=== PATIENT | male | born 1935 | race Caucasian/White ===

== ENCOUNTER 2021-04-03 13:46 | Observation (INO) | payer MEDICARE, BC ==
[~2021-04-03] VITALS: Ht 160 cm; Wt 66.1 kg
[~2021-04-03 13:46] MED LIST: ALLO300T PO; BISO1TAB82 PO; FOLI0.8C PO; METH2.5T PO
--- NOTE | 2021-04-03 14:12 | PHYS DOC ---
Past History Past Medical History: Hypertension Additional Past Medical Histor: psorisis, gout, colon cancer Past Surgical History: Other Additional Past Surgical Histo: hernia repair, Alcohol Use: Heavy Additional Alcohol Information: 2 beers/daily General Adult EDM: Chief Complaint: MECHANICAL FALL HPI: HPI: Patient is a 85-year-old male brought in by EMS for back pain after a fall 2 days ago. Patient states he was out in his yard when he slipped on some wet leaves and fell forward. Patient try to catch himself but struck his face on the ground. States he has some pain and bruising around his right eye but he does not have any pain there now. He has had a difficult time caring for himself and getting out of bed due to the back pain. States he has not been able to use the restroom and has been incontinent of urine. Denies any lower extremity weakness. Has a friend there for suicidal stock manager, that comes by daily to check on him but is unable to stay with him. She is able to feed and at that time. Review of Systems: Review of Systems: All other systems within normal limits except for as noted in the HPI Physical Exam: PE: Constitutional: Well developed, well nourished, no acute distress, non-toxic appearance. [] HENT: Normocephalic, atraumatic, bilateral external ears normal, nose normal. [] Eyes: PERRLA, conjunctiva normal, no discharge. [] Neck: No rigidity, supple, no stridor. [] Cardiovascular: Regular rate and rhythm, brisk cap refill [] Lungs & Thorax: Non labored symmetric respirations, no tachypnea or respiratory distress [] Abdomen: Soft, nondistended. Skin: Warm, dry, no erythema, no rash. [] Back: Unremarkable, no step-off or deformity, tenderness over trapezius and thoracic spine, no lumbar or cervical tenderness. Extremities: No deformities, range of motion grossly intact, no lower extremity edema [] Neurologic: Alert and oriented X 3, no focal deficits noted. [] Psychologic: Affect normal, judgement normal, mood normal. [] EKG: EKG: [] Radiology/Procedures: Radiology/Procedures: CT THORACIC SPINE WO 04/03/2021 2:43 PM Indication: fall, pain Comparison: None. Technique: CT imaging of the thoracic spine was performed without contrast. Coronal and sagittal reformatted images were performed. One or more of the following dose reduction techniques were utilized: Automated exposure control (AEC), Adjustment of mA and/or kV according to patient size, Use of iterative reconstruction technique such as ASiR, CT scan done according to ALARA and image gently/image wisely. Findings: The thoracic spine is normally aligned. No acute fracture. Vertebral body heights are maintained without compression deformity. Multilevel degenerative disc height loss. Osseous demineralization. Multilevel bridging osteophytes. No significant spinal canal stenosis or neural foraminal narrowing. The visualized lungs are clear. No pleural effusion. Atherosclerosis of the thoracic aorta. Mitral annular calcification. Impression: No acute osseous abnormality of the thoracic spine. [] Heart Score: C/O Chest Pain: No Risk Factors: Risk Factors: DM, Current or recent (<one month) smoker, HTN, HLP, family history of CAD, obesity. Risk Scores: Score 0 - 3: 2.5% MACE over next 6 weeks - Discharge Home Score 4 - 6: 20.3% MACE over next 6 weeks - Admit for Clinical Observation Score 7 - 10: 72.7% MACE over next 6 weeks - Early Invasive Strategies Course & Med Decision Making: Course & Med Decision Making Pertinent Labs and Imaging studies reviewed. (See chart for details) No fracture but patient has pain severe enough to limit his activities and is not able to care for himself at home. Patient is a fall risk with pain medications. Discussed with hospitalist will accept patient for physical therapy and pain management. [] Dragon Disclaimer: Dragon Disclaimer: This electronic medical record was generated, in whole or in part, using a voice recognition dictation system. Departure Departure: Impression: Primary Impression: Fall Additional Impression: Thoracic back pain Disposition: ADMITTED INPATIENT Admitting Physician: Louie Brito Condition: STABLE WILLIAM PRASAD MD April 03, 2021 14:12
--- NOTE | 2021-04-03 15:29 | RAD ---
CT THORACIC SPINE WO 04/03/2021 2:43 PM Indication: fall, pain Comparison: None. Technique: CT imaging of the thoracic spine was performed without contrast. Coronal and sagittal ref ormatted images were performed. One or more of the following dose reduction techniques were utilized: Automated exposure control (AEC), Adjustment of mA and/or kV according to patient size, Use of itera tive reconstruction technique such as ASiR, CT scan done according to ALARA and image gently/image wi sely. Findings: The thoracic spine is normally aligned. No acute fracture. Vertebral body heights are maintained with out compression deformity. Multilevel degenerative disc height loss. Osseous demineralization. Multil evel bridging osteophytes. No significant spinal canal stenosis or neural foraminal narrowing. The visualized lungs are clear. No pleural effusion. Atherosclerosis of the thoracic aorta. Mitral an nular calcification. Impression: No acute osseous abnormality of the thoracic spine. Electronically signed by: Adi Reed MD (04/03/2021 3:26 PM) [id number]
[2021-04-03 15:59] LABS: BASO % 0 % (0-3); EOS # 0.1 x10^3/uL (0.0-0.7); EOS % 1 % (0-3); HEMATOCRIT 44.8 % (39.0-53.0); LYMPH % 11 % (24-48); MEAN CORPUSCULAR HEMOGLOBIN 33 pg (25-35); MEAN CORPUSCULAR HGB CONC 34 g/dL (31-37); MEAN CORPUSCULAR VOLUME 99 fL (79-100); MONO # 0.7 x10^3/uL (0.0-1.1); MONO % 8 % (0-9); NEUT # 7.1 x10^3uL (1.8-7.7); NEUT % 80 % (31-73); PLATELET COUNT 218 x10^3/uL (140-400); RED CELL DISTRIBUTION WIDTH 13.4 % (11.5-14.5); WHITE BLOOD COUNT 8.9 x10^3/uL (4.0-11.0)
[2021-04-03] MEDS ORDERED: MORPHINE SULFATE 2 MG/ML DISP.SYRIN. IVP PRN (16:00)
[2021-04-03] MEDS ORDERED: MORPHINE SULFATE 4 MG/ML DISP.SYRIN. IVP PRN (16:00)
[2021-04-03] MEDS ORDERED: ACETAMINOPHEN 325 MG TABLET PO PRN (16:00)
[2021-04-03] MEDS ORDERED: ONDANSETRON PF 4 MG/2 ML VIAL. IVP PRN (16:00)
[2021-04-03 16:15] LABS: CALCIUM 8.8 mg/dL (8.5-10.1); GFR 71.2; POTASSIUM 3.9 mmol/L (3.5-5.1)
[2021-04-03 16:28] LABS: ALBUMIN 3.1 g/dL (3.4-5.0); ALBUMIN/GLOBULIN RATIO 0.9 (1.0-1.7); MAGNESIUM 2.2 mg/dL (1.8-2.4); PHOSPHORUS 3.6 mg/dL (2.6-4.7); TOTAL BILIRUBIN 1.4 mg/dL (0.2-1.0); TOTAL PROTEIN 6.7 g/dL (6.4-8.2)
[2021-04-03 16:35] LABS: BILIRUBIN,URINE NEG (NEG); CLARITY,URINE CLEAR; COLOR,URINE YELLOW; GLUCOSE,URINE NEG (NEG)
[2021-04-03 16:36] LABS: BACTERIA,URINE 0 /HPF (0-FEW); NITRITE,URINE NEG (NEG); RBC,URINE 0 /HPF (0-2); SQUAMOUS EPITHELIAL CELL,UR OCC /LPF; WBC,URINE 0 /HPF (0-4)
[2021-04-03] MEDS: IV NORMAL SALINE 1,000ML 1,000 ML IV SCH (17:19)
--- NOTE | 2021-04-03 18:34 | NUR ---
Admission note Pt admitted to unit to room 124 at 1652 via EMS from the ER. Pt is unable to give medication list and when asked if there was anyone who could bring one in pt replied no there is no one.
[2021-04-03 19:23] VITALS: BP 163/84
--- NOTE | 2021-04-03 19:23 | NUR ---
pt cant not come up with a med list. called the pharmacy but it is closed due to holiday. Also the house keeper is not answering her phone to assists with med list. Will try to call pharmacy in the morning.
[2021-04-03 22:34] VITALS: BP 160/81
[2021-04-04] MEDS: IV NORMAL SALINE 1,000ML 1,000 ML IV SCH (05:20)
[2021-04-04 05:25] VITALS: BP 171/73
[2021-04-04 06:17] LABS: CALCIUM 8.2 mg/dL (8.5-10.1); CREATININE 0.9 mg/dL (0.7-1.3); GFR 80.4; POTASSIUM 4.2 mmol/L (3.5-5.1)
[2021-04-04 06:32] LABS: BASO % 1 % (0-3); EOS % 1 % (0-3); HEMATOCRIT 43.8 % (39.0-53.0); HEMOGLOBIN 14.9 g/dL (13.0-17.5); LYMPH % 11 % (24-48); MEAN CORPUSCULAR HEMOGLOBIN 34 pg (25-35); MEAN CORPUSCULAR HGB CONC 34 g/dL (31-37); MEAN CORPUSCULAR VOLUME 99 fL (79-100); MONO # 0.4 x10^3/uL (0.0-1.1); MONO % 5 % (0-9); NEUT # 7.5 x10^3uL (1.8-7.7); NEUT % 83 % (31-73); PLATELET COUNT 220 x10^3/uL (140-400); RED BLOOD COUNT 4.44 x10^6/uL (4.30-5.70); RED CELL DISTRIBUTION WIDTH 13.4 % (11.5-14.5)
--- NOTE | 2021-04-04 09:01 | DS ---
DATE OF DISCHARGE: 04/04/2021 ATTENDING PHYSICIAN: Dr. Brito. FINAL DISCHARGE DIAGNOSES: 1. Weakness and fall at home. 2. Chronic alcoholism. 3. Psoriasis. 4. Psoriatic arthritis. 5. Essential hypertension. 6. Degenerative joint disease. 7. Chronic low back pain. HISTORY AND PHYSICAL: The patient is an 85-year-old gentleman who lives alone. He never . 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 He fell at home. He was very weak. He was admitted to the hospital overnight for observation and potential long-term care plan. PHYSICAL EXAMINATION: Please see my dictated note. PERTINENT LABORATORY AND X-RAY STUDIES: CBC, chemistry panel unremarkable. Sugars were adequate. X-ray showed no acute fracture or dislocation. No thoracic spine. COURSE IN THE HOSPITAL: The patient was sober when I saw him. I asked him if he needed a higher level of care, he declined. He wants to go home to continue living at home with his carpenter foreman. There were no changes on his home meds. I did take the liberty writing him a prescription for standard wheelchair. Therefore on the 2nd hospital day, the patient's vital signs were quite stable. Blood pressure was 160/70. He was afebrile, pulse is regular. He is in no acute distress. He is therefore discharged home with continuation of his blood pressure meds combination, bisoprolol, hydrochlorothiazide, folic acid, methotrexate weekly and allopurinol. He will follow up with Dr. Mitchell as scheduled. I wrote him a script for standard wheelchair. He was discharged in stable condition with explicit drug and followup care. SHON DR: Naz TID: [id number] CC: CLAUDIA MITCHELL MD
--- NOTE | 2021-04-04 09:12 | HP ---
ADMIT DATE: 04/04/2021 ATTENDING PHYSICIAN: Dr. Brito. CHIEF COMPLAINT: Fall and weakness. HISTORY OF PRESENT ILLNESS: The patient is an 85-year-old gentleman who is single. He never . He lives alone. He has a fish housekeeper that has been with him for 24 years that comes in and gets his groceries and looks after. She is not there 24 hours. He fell again two days ago in the yard. He sustained an injury to the right orbit. He has no bruits. He has some chronic back pain. X-rays in the ED showed no acute fractures or dislocation. He has some degenerative arthritis changes without any vertebral fractures. Blood work was fairly unremarkable. There was no evidence of acute infection, stroke, COVID exposure or coronary ischemia. He was admitted then for observation because he cannot care for himself. He lives alone. The reality is that he has reached the point in his life where he cannot take care of himself and he needs a higher level of care, but he refused at this time. In any event, we will get physical therapy. We will keep him overnight and decide when he wants to do. PAST MEDICAL HISTORY: Significant for essential hypertension, psoriasis, gout and remote history of colon cancer. PAST SURGICAL HISTORY: Hernia repair. SOCIAL HISTORY: Alcohol use significant, he states 2 beers daily, but he drinks more than that. He denies any remote history of alcohol withdrawal syndrome. FAMILY HISTORY: Noncontributory. REVIEW OF SYSTEMS: Significant for profound weakness. He has some neuropathy, chronic low back pain. He was very sharp mentally when I saw him. All other systems reviewed and turned to be negative. ALLERGIES: HE HAS ALLERGIES TO PENICILLIN. CURRENT MEDICATIONS: Include allopurinol, bisoprolol, folic acid and methotrexate weekly. PHYSICAL EXAMINATION: GENERAL: When I saw him, this is a chronically ill-appearing gentleman. INITIAL VITAL SIGNS: Showed a blood pressure 161/71 mmHg, pulse is 78 and regular. He was afebrile, oxygen saturation 97% on room air. HEENT: Head is without trauma. Pupils are reactive sclerae. NEUROLOGIC: Nonicteric. There is an old bruits and swelling over the right periorbital area. 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 NECK: Supple. No bruits or stridor. LUNGS: Otherwise clear. CARDIOVASCULAR: Regular heart tones. No gallops. ABDOMEN: Soft. EXTREMITIES: Without edema. He has a boutonniere deformities of his index finger of the right hand. He also has some hypertrophic osteoarthropathy (clubbing). He is still weak and requires 1:1 assistance for transfer. PERTINENT LABORATORY AND IMAGING STUDIES: Thoracic spine films show no acute fracture or dislocation. Degenerative changes were identified. Hemoglobin is 15.0 g/dL, MCV is 99, white count 8900. Electrolytes all within normal range with a sodium 140, potassium 4.2 mEq, creatinine of 0.9 mg%. Nonfasting blood sugar is 101. Cardiac enzymes negative for coronary ischemia. BNP was 1700. Bilirubin of 1.4. Transaminases were normal. ASSESSMENT: 1. This 85-year-old gentleman fell and was quite weak and cannot get up. 2. Chronic alcoholism. 3. Alcoholic neuropathy. 4. History of psoriasis. 5. Degenerative joint disease. 6. Chronic low back pain. PLAN: 1. Observation status. 2. Home medications continue. 3. We will have case management discussed with him in the morning as to his disposition. HARRISON/CLARKE DR: Naz TID: [id number] CC: CLAUDIA MITCHELL MD
== END 2021-04-04 10:30 | disposition home health service (06) ==
LOC: ER 13:46 → INTOOBSV 16:00 → 1 SOUTH 16:00
PROVIDERS: ADMIT Hospitalist; ATTEND Hospitalist
DX: S00.11XA Contusion of right eyelid and periocular area, initial encounter (principal); R53.1 Weakness; F10.20 Alcohol dependence, uncomplicated; I10 Essential (primary) hypertension; G90.9 Disorder of the autonomic nervous system, unspecified; L40.9 Psoriasis, unspecified; M54.6 Pain in thoracic spine; M19.90 Unspecified osteoarthritis, unspecified site; M54.5 Low back pain; G89.29 Other chronic pain; L40.50 Arthropathic psoriasis, unspecified; M10.9 Gout, unspecified; E78.5 Hyperlipidemia, unspecified; R32 Unspecified urinary incontinence; E11.9 Type 2 diabetes mellitus without complications; G62.1 Alcoholic polyneuropathy; Z85.038 Personal history of other malignant neoplasm of large intestine; Z87.891 Personal history of nicotine dependence; Z79.899 Other long term (current) drug therapy; Z98.890 Other specified postprocedural states; Z91.81 History of falling; W01.0XXA Fall on same level from slipping, tripping and stumbling without subsequent striking against object, initial encounter; Y93.89 Activity, other specified; Y92.009 Unspecified place in unspecified non-institutional (private) residence as the place of occurrence of the external cause; Y90.9 Presence of alcohol in blood, level not specified; Y99.8 Other external cause status
CPT/HCPCS: 36415; 72128; 80048; 80053; 81001; 82550; 83735; 83880; 84100; 84484; 85025; 96360; 96361; 99284; G0378; J7030; G0379; 99285-25

== ENCOUNTER 2021-04-25 14:02 | Emergency (ER) | payer MEDICARE, BC ==
[~2021-04-25] VITALS: Ht 160 cm; Wt 62.3 kg
[2021-04-25] MEDS ORDERED: IV NORMAL SALINE 1,000ML 1,000 ML IV ONE ×2 (14:15→14:45)
[2021-04-25 14:40] LABS: BASO # 0.1 x10^3/uL (0.0-0.2); BASO % 1 % (0-3); EOS # 0.1 x10^3/uL (0.0-0.7); EOS % 1 % (0-3); HEMOGLOBIN 13.3 g/dL (13.0-17.5); LYMPH # 1.1 x10^3/uL (1.0-4.8); LYMPH % 10 % (24-48); MEAN CORPUSCULAR HEMOGLOBIN 33 pg (25-35); MEAN CORPUSCULAR HGB CONC 34 g/dL (31-37); MEAN CORPUSCULAR VOLUME 98 fL (79-100); MONO # 1.5 x10^3/uL (0.0-1.1); MONO % 15 % (0-9); NEUT # 7.5 x10^3uL (1.8-7.7); NEUT % 73 % (31-73); PLATELET COUNT 448 x10^3/uL (140-400); RED BLOOD COUNT 3.98 x10^6/uL (4.30-5.70); RED CELL DISTRIBUTION WIDTH 13.4 % (11.5-14.5); WHITE BLOOD COUNT 10.2 x10^3/uL (4.0-11.0)
[2021-04-25] MEDS ORDERED: AZTREONAM 2 GM in IV NORMAL SALINE 100ML 100 ML IV ONE (14:45)
[2021-04-25] MEDS ORDERED: NOREPINEPHRINE BITARTRATE 8 MG in IV DEXTROSE 5% 250 ML IV PRN (14:45)
[2021-04-25] MEDS ORDERED: VANCOMYCIN PER PHARMACY MC PRN (14:45)
[2021-04-25] MEDS ORDERED: AZTREONAM 1 GM VIAL. IV ONE (14:49)
[2021-04-25 14:51] LABS: BUN ISTAT 46 mg/dL (8-26); GLUCOSE ISTAT 134 mg/dL (60-99); HEMATOCRIT ISTAT 40 %; HEMOGLOBIN ISTAT 13.6 gm/dL; POTASSIUM ISTAT 3.2 mmol/L (3.5-5.0); SODIUM ISTAT 140 mmol/L (135-145)
[2021-04-25] MEDS ORDERED: IV NORMAL SALINE 100ML 100 ML ONE (14:52)
[2021-04-25] MEDS ORDERED: VANCOMYCIN 1.5 GM in IV NORMAL SALINE 500ML 500 ML IV ONE (15:00)
--- NOTE | 2021-04-25 15:54 | RAD ---
XR CHEST 1V History: Reason: weakness / Spl. Instructions: / History: Comparison: None. Findings: Low lung volumes with mild bibasilar linear atelectasis. Normal heart size. No pneumothorax. Prior gr anulomatous disease within the chest. Impression: 1. Low lung volumes with mild bibasilar linear atelectasis. Electronically signed by: Todd Dickens DO (04/25/2021 3:51 PM) [facility]
[2021-04-25 16:15] LABS: CLARITY,URINE CLEAR; COLOR,URINE YELLOW
[2021-04-25 16:16] LABS: BILIRUBIN,URINE SMALL (NEG); GLUCOSE,URINE NEG (NEG); NITRITE,URINE NEG (NEG)
[2021-04-25 16:21] LABS: BACTERIA,URINE FEW /HPF (0-FEW); HYALINE CASTS, URINE MANY /HPF; SQUAMOUS EPITHELIAL CELL,UR FEW /LPF
--- NOTE | 2021-04-25 16:59 | PHYS DOC ---
Past History Past Medical History: Hypertension Additional Past Medical Histor: psorisis, gout, colon cancer Past Medical History Limited secondary to altered mental status Past Surgical History: Other Additional Past Surgical Histo: hernia repair, Past Surgical History Limited secondary to altered mental status Alcohol Use: Heavy Social History Limited secondary to altered mental status General Adult EDM: Chief Complaint: SYNCOPE HPI: HPI: 85-year-old male presents via EMS from acute care rehab after having syncopal episode with subsequent unresponsiveness in wheelchair just prior to arrival. EMS reports initial blood pressure significantly low down to 60s over 30s. IV fluid bolusing provided by EMS. Patient was able to give his name but otherwise was on oriented. Discussed with patients friends, Sheryl and Jaimie Carranza. Patient with last known fall on 04/03/21. At that time, patient was seen in ED at [facility] at that time with CT thoracic spine imaging obtained. Due to pain and weakness, patient was admitted and then transferred to acute care rehab for further management.. Patient with history of altered mental status secondary to urinary tract infection. Per [facility], patient is currently being treated with doxycycline for an UTI. Per [employer] review patient received Moderna COVID vaccinations with 2nd vaccination reportedly given on 03/22/21. Review of Systems: Review of Systems: Review of systems limited secondary to altered mental status. Current Medications: Current Meds: Current Medications Medications (Trade) Dose Ordered Sig/Adi Start Time Stop Time Status Last Admin Dose Admin Aztreonam (Azactam) 1 gm STK-MED ONCE 04/25/21 14:49 04/25/21 14:49 DC Aztreonam 2 gm/ Sodium Chloride 100 ml @ 200 mls/hr 1X ONCE 04/25/21 14:45 04/25/21 15:14 DC 04/25/21 14:45 200 MLS/HR Levofloxacin/ Dextrose 150 ml @ 100 mls/hr 1X ONCE 04/25/21 14:45 04/25/21 16:14 DC Norepinephrine Bitartrate 8 mg/ Dextrose 258 ml @ 12.055 mls/ hr CONT PRN 04/25/21 14:45 04/25/21 15:30 24.11 MLS/HR Sodium Chloride 100 ml @ As Directed STK-MED ONCE 04/25/21 14:52 04/25/21 14:52 DC Vancomycin HCl (Vanco Per Pharmacy) 1 each PRN DAILY PRN 04/25/21 14:45 Vancomycin HCl 1.5 gm/Sodium Chloride 500 ml @ 250 mls/hr 1X ONCE 04/25/21 15:00 04/25/21 16:59 04/25/21 15:35 250 MLS/HR Allergies: Allergies: Allergies Coded Allergies Type Severity Reaction Last Updated Verified Penicillins Allergy Unknown 04/03/21 Yes tetracycline Adverse Reaction Intermediate Nausea and Vomiting 04/04/21 Yes Physical Exam: PE: Constitutional: Elderly, well nourished, toxic appearance HENT: Normocephalic, small healing ecchymosis noted above right eyebrow, mucous membranes dry Eyes: PERRL, EOMI, conjunctiva normal, no discharge Neck: Cervical tenderness on palpation, supple Lungs & Thorax: No respiratory distress, equal chest rise and fall, coarse breath sounds bilaterally Cardiovascular: Regular rate and rhythm Abdomen: Soft, no tenderness, no guarding/rebound tenderness/distention; pelvis stable and nontender Skin: Warm, dry, no erythema, scattered skin tears to left arm, erythema noted to groin consistent with heat rash Extremities: No tenderness, no deformity Neurologic: Alert and oriented X name only, patient is able to move arms and legs with some decreased strength to left hand, normal sensory function, GCS 13 (eyes 4, verbal 4, motor 5) Psychologic: Affect normal, judgment abnormal Current Patient Data: Labs: Laboratory Tests Test 04/25/21 14:14 04/25/21 15:49 White Blood Count 10.2 x10^3/uL (4.0-11.0) Red Blood Count 3.98 x10^6/uL (4.30-5.70) L Hemoglobin 13.3 g/dL (13.0-17.5) POC Hemoglobin 13.6 gm/dL Hematocrit 39.0 % (39.0-53.0) POC Hematocrit 40 % Mean Corpuscular Volume 98 fL (79-100) Mean Corpuscular Hemoglobin 33 pg (25-35) Mean Corpuscular Hemoglobin Concent 34 g/dL (31-37) Red Cell Distribution Width 13.4 % (11.5-14.5) Platelet Count 448 x10^3/uL (140-400) H Neutrophils (%) (Auto) 73 % (31-73) Lymphocytes (%) (Auto) 10 % (24-48) L Monocytes (%) (Auto) 15 % (0-9) H Eosinophils (%) (Auto) 1 % (0-3) Basophils (%) (Auto) 1 % (0-3) Neutrophils # (Auto) 7.5 x10^3uL (1.8-7.7) Lymphocytes # (Auto) 1.1 x10^3/uL (1.0-4.8) Monocytes # (Auto) 1.5 x10^3/uL (0.0-1.1) H Eosinophils # (Auto) 0.1 x10^3/uL (0.0-0.7) Basophils # (Auto) 0.1 x10^3/uL (0.0-0.2) POC Sodium 140 mmol/L (135-145) POC Potassium 3.2 mmol/L (3.5-5.0) L POC Chloride 101 mmol/L (98-110) POC Total CO2 19 mmol/L (23-32) L Anion Gap 19 mmol/L (6-14) H POC Blood Urea Nitrogen 46 mg/dL (8-26) H POC Creatinine 1.4 mg/dL (0.5-1.4) Glucose Level 134 mg/dL (60-99) H POC Ionized Calcium (Moe) 1.4 mmol/L (1.13-1.32) H POC Troponin I < 0.02 ng/ml (<0.08) Urine Collection Type Unknown Urine Color Yellow Urine Clarity Clear Urine pH 6.0 Urine Specific [place] 1.010 Urine Protein Trace (NEG-TRACE) Urine Glucose (UA) Neg mg/dL (NEG) Urine Ketones (Stick) Trace mg/dL (NEG) Urine Blood Large (NEG) Urine Nitrite Neg (NEG) Urine Bilirubin Small (NEG) Urine Urobilinogen Dipstick 1.0 mg/dL (0.2 mg/dL) Urine Leukocyte Esterase Trace (NEG) Urine RBC 11-20 /HPF (0-2) Urine WBC 11-20 /HPF (0-4) Urine Squamous Epithelial Cells Few /LPF Urine Bacteria Few /HPF (0-FEW) Urine Hyaline Casts Many /HPF Urine Mucus Mod /LPF Vital Signs: Vital Signs Date Time Temp Pulse Resp B/P (MAP) Pulse Ox O2 Delivery O2 Flow Rate FiO2 04/25/21 15:01 65 16 81/41 (54) 95 Room Air 04/25/21 14:06 97.2 EKG: EKG: @1405 NSR at 66bpm, NO ST elevation, QRS 84ms, QT/QTc 418/440ms Radiology/Procedures: Radiology/Procedures: PROCEDURE: PORTABLE CHEST 1V XR CHEST 1V History: Reason: weakness / Spl. Instructions: / History: Comparison: None. Findings: Low lung volumes with mild bibasilar linear atelectasis. Normal heart size. No pneumothorax. Prior granulomatous disease within the chest. Impression: 1. Low lung volumes with mild bibasilar linear atelectasis. Electronically signed by: Todd Dickens DO (04/25/2021 3:51 PM) [facility] PROC[facility]: CT HEAD AND CERVICAL SPINE WO CT HEAD AND C-SPINE WO History: Reason: weakness / Spl. Instructions: / History: Comparison: None. Technique: Noncontrast CT imaging was performed of the head and cervical spine. Coronal and sagittal reconstructions were performed. Exposure: One or more of the following individualized dose reduction techniques were utilized for this examination: 1. Automated exposure control 2. Adjustment of the mA and/or kV according to patient size 3. Use of iterative reconstruction technique. Findings: Head CT: No intracranial hemorrhage. No mass effect. No hydrocephalus. Mild brain parenchymal volume loss. Moderate foci of decreased attenuation within the hemispheric white matter, most often due to chronic microvascular ischemia. Imaged orbits are unremarkable. Imaged paranasal sinuses and mastoid air cells are clear. No acute calvarial fracture. TMJ arthropathy. Cervical spine CT: Acute C6-C7 disc space fracture with involvement of the C6 inferior endplate and C7 superior endplate anterior and posterior columns. Acute displaced fractures of the bilateral C6 facets. There is anterior acute subluxation of C6 relation to C7 with jumped facets. There is mild associated canal narrowing. Comminuted spinous process fracture C6 and C5. Acute fracture of right C5 and C6 transverse processes involving the transverse foramen. Acute right C7 transverse process f racture. There is anterior prevertebral edema. Diffuse intervertebral and posterior element fusion of the cervical thoracic spi ne including C1-C2 and C1 occiput. Soft tissues unremarkable. Impression: Head CT: 1. No acute intracranial abnormality. 2. Moderate sequelae of chronic microvascular ischemia. Cervical spine CT: 1. Acute unstable C6-C7 three column fracture with anterior subluxation and jumped facets. Recommend MRI to further evaluate. 2. Acute right C5, C6 and C7 transverse process fractures involving the transverse foramen. CT angiogram can further assess if concern for right vertebral artery injury. 3. Diffuse cervical and thoracic spinal bony fusion. FOR INTERNAL CODING PURPOSES Critical result: Findings discussed with Dr. Hauser at 04/25/2021 4:59 PM. RESULT CODE: (C) Electronically signed by: Todd Dickens DO (04/25/2021 5:13 PM) [facility] Heart Score: C/O Chest Pain: N/A Course & Med Decision Making: Course & Med Decision Making Pertinent Labs and Imaging studies reviewed. (See chart for details) Elderly patient presents from [facility] after being found unresponsive in wheelchair. Patient noted to be hypotensive by EMS and continued upon arrival. Concern for possible sepsis. Sepsis evaluation performed. IVF bolusing provided. Emipric antibiotic given. Labs obtained and posted to chart. Lactic acidosis noted. UA with signs of infection. Hypokalemia addressed. Hypotension continued despite IVF bolusing. Patient requiring central line. Patient guarding neck. Patient denies known trauma. Patient is a poor historian. Some healed ecchymosis noted above right eyebrow. CT head/cervical spine obtained with findings of unstable cervical spine fractures and transverse spinous fractures. C-collar immediately placed. Discussed case with Suze WHITNEY and Dr. Grewal (neurosurgery) who evaluated images and recommend transfer to higher level facility than [facility] [place] as fractures are complicated in nature. Recommend . Radiology also recommended CTA head/neck given concern for possible vertebral artery injury. CTA imaging therefore obtained with occlusion of right vertebral artery noted, however, noted collateral and left vertebral supply adequate. Other vessel stenosis appreciated. Initiated transfer with discussion with transfer line. Patient requiring admission for further evaluation and treatment. Discussed with Dr. Nathan Dawson (trauma surgeon) at who is in agreement with admission. D iscussed findings and plan with patient's friends, who acknowledge understanding and agreement. Of NOTE: Listed point of contacts for patient are: (NO DPOA or family) Jaimie Carranza Sheryl Peters Josie Disclaimer: Dragon Disclaimer: This electronic medical record was generated, in whole or in part, using a voice recognition dictation system. Departure Departure: Impression: Primary Impression: Syncope Qualified Codes: R55 - Syncope and collapse Additional Impressions: Altered mental status Qualified Codes: R41.82 - Altered mental status, unspecified Lactic acidosis Hypokalemia UTI (urinary tract infection) Qualified Codes: N30.01 - Acute cystitis with hematuria Multiple fractures of cervical spine, closed Qualified Codes: S12.9XXA - Fracture of neck, unspecified, initial encounter Disposition: 02 [facility] ([facility] Dr. Nathan Dawson (trauma) accepting) Condition: GUARDED Referrals: CLAUDIA MITCHELL MD (PCP) Central Line Central Line : Central Line Lumen: triple Central Line Procedure: sterile drapes applied, sterile dressing applied Central Line Postion: femoral (L) Anesthesia: Lidocaine cc's of anesthesia: 3 Complications: none Central Line Post Position: sutured, good blood return Progress Emergent consent utilized. Time out performed. Hand hygiene utilized. Sterile attire donned. Left groin cleaned with ChloraPrep. Anesthesia obtained via a 25-gauge hypodermic needle with (3) mL's of lidocaine 1%. Hypoechoic oval- shaped compressible structure noted on bedside ultrasound. Ultrasound guidance utilized with successful placement of triple-lumen catheter to left femoral vein via Seldinger technique. Catheter sutured in place. Good blood return and flush. Sterile dressing applied. Patient tolerated procedure well and without difficulty. Sepsis Assessment Date and Time of Assessment Date: Apr 25, 2021 Time: 19:00 Fluid Challenge: Is the fluid challenge complet: Yes IBW Target Volume Used: No BMI > 30: No Vital Signs Vital Signs Vital Signs Date Time Temp Pulse Resp B/P (MAP) Pulse Ox O2 Delivery O2 Flow Rate FiO2 04/25/21 15:01 65 16 81/41 (54) 95 Room Air 04/25/21 14:06 97.2 Temperature Source: Axillary Respirations Respiratory Effort: Normal Respiratory Pattern: Normal Cardiovascular Pulse Rhythm: Regular Heart: Nml rate, reg. rhythm Lung Sounds Breath Sounds: Diminished Capillary Refill Capillary Refill: Rt Hand < 3 seconds Peripheral Pulse Pulse Location: Radial Pulse Strength: Normal (2+) Pulse Assessment Method: Palpation Integumentary Skin: Warm, Dry Skin Moisture: Dry Skin Turgor: Tented Skin Color: warm, dry Fingernail Color: WNL Critical Care Time Critical care time was 30 minutes which includes time at bedside, spent in discussion of patient's care with specialists and/or family members, with interpretation of laboratory and/or radiological studies and is exclusive of procedures. KENDRICK HAUSER DO Apr 25, 2021 16:58
--- NOTE | 2021-04-25 17:16 | RAD ---
CT HEAD AND C-SPINE WO History: Reason: weakness / Spl. Instructions: / History: Comparison: None. Technique: Noncontrast CT imaging was performed of the head and cervical spine. Coronal and sagittal reconstructions were performed. Exposure: One or more of the following individualized dose reduction techniques were utilized for thi s examination: 1. Automated exposure control 2. Adjustment of the mA and/or kV according to patient size 3. Use of iterative reconstruction technique. Findings: Head CT: No intracranial hemorrhage. No mass effect. No hydrocephalus. Mild brain parenchymal volume loss. Moderate foci of decreased attenuation within the hemispheric whi te matter, most often due to chronic microvascular ischemia. Imaged orbits are unremarkable. Imaged paranasal sinuses and mastoid air cells are clear. No acute ca lvarial fracture. TMJ arthropathy. Cervical spine CT: Acute C6-C7 disc space fracture with involvement of the C6 inferior endplate and C7 superior endplate anterior and posterior columns. Acute displaced fractures of the bilateral C6 facets. There is anter ior acute subluxation of C6 relation to C7 with jumped facets. There is mild associated canal narrowi ng. Comminuted spinous process fracture C6 and C5. Acute fracture of right C5 and C6 transverse proce sses involving the transverse foramen. Acute right C7 transverse process fracture. There is anterior prevertebral edema. Diffuse intervertebral and posterior element fusion of the cervical thoracic spine including C1-C2 an d C1 occiput. Soft tissues unremarkable. Impression: Head CT: 1. No acute intracranial abnormality. 2. Moderate sequelae of chronic microvascular ischemia. Cervical spine CT: 1. Acute unstable C6-C7 three column fracture with anterior subluxation and jumped facets. Recommend MRI to further evaluate. 2. Acute right C5, C6 and C7 transverse process fractures involving the transverse foramen. CT angio gram can further assess if concern for right vertebral artery injury. 3. Diffuse cervical and thoracic spinal bony fusion. FOR INTERNAL CODING PURPOSES Critical result: Findings discussed with Dr. Ramos at 04/25/2021 4:59 PM. RESULT CODE: (C) Electronically signed by: Todd Dickens DO (04/25/2021 5:13 PM) [facility]
[2021-04-25] MEDS ORDERED: IOHEXOL 350 MG/ML 100 ML VIAL. IV ONE (17:30)
[2021-04-25] MEDS: POTASSIUM CHLORIDE 10MEQ 100 ML IV SCH ×2 (17:38→19:20)
--- NOTE | 2021-04-25 18:56 | RAD ---
CT arteriogram the carotid arteries, CT arteriogram of the brain. HISTORY: Stable C-spine fractures. CT arteriogram the carotid arteries and vertebral arteries was done using 75 in now [id number] Three-dimensional images were reconstructed. Lung apices are clear except for mild atelectasis. A pulmonary embolus is not identified in the upper lobes the lungs. There is extensive atherosclerotic change at the aortic arch. Origins the great vessels are patent. There is plaque at the origin of th e right vertebral without severe stenosis. A small left vertebral appears to have its origin on the thyrocervical trunk or there is a collateral from the thyrocervical trunk which reconstitutes the lef t vertebral. There is narrowing of the left vertebral at the level of the fracture at C6-7. Right com mon carotid artery is patent. There is extensive calcified plaque the origin the right internal carot id artery with greater than 50 percent stenosis possibly greater than 70 percent stenosis. There is p laque at the left carotid bifurcation which is calcified and hypoechoic with less than 50 percent markus nosis. IMPRESSION: IMPRESSION: 1. Mild plaque at the origin the right vertebral which is a normal-size vessel without stenosis. 2. Either occlusion of the right vertebral and reconstitution via collaterals from the thyrocervical trunk or the left vertebral has its origin at the thyrocervical trunk. 3. Marked stenosis of the left vertebral at the level the fracture. 4. Severe stenosis proximal right internal carotid artery. 5. Moderate but less than 50 percent stenosis left common carotid artery. End impression CT arteriogram of the brain CT arteriogram of the brain was done following the CT arteriogram the carotid arteries with the same contrast. Sagittal and coronal MIP images were reconstructed. Basilar artery is normal. Both posterio r cerebral arteries have their origin on the basilar artery. There is only a tiny posterior communica ting artery on the right. Posterior cerebral arteries are patent. There is plaque at the carotid siph on on each side without severe stenosis. Anterior cerebral is are patent. There is a normal anterior communicating artery. Middle cerebral arteries are patent without a major vessel occlusion. Intracran ial aneurysm is not identified. There is no pathologic enhancement intracranially. Intracranial veins are patent. There is no intracranial aneurysm. IMPRESSION: 1. Normal basilar artery and posterior cerebral arteries. 2. Plaque in the carotid siphon without severe stenosis on either side. 3. No major vessel occlusion intracranially. PQRS Compliance Statement: One or more of the following individualized dose reduction techniques were utilized for this examinat ion: 1. Automated exposure control 2. Adjustment of the mA and/or kV according to patient size 3. Use of iterative reconstruction technique Electronically signed by: Real Soria MD (04/25/2021 6:53 PM) [facility]
[2021-04-25 21:19] LABS: ALBUMIN 2.5 g/dL (3.4-5.0); ALBUMIN/GLOBULIN RATIO 0.7 (1.0-1.7); BLOOD UREA NITROGEN 46 mg/dL (8-26); GLUCOSE 132 mg/dL (70-99); TOTAL PROTEIN 6.2 g/dL (6.4-8.2)
[2021-04-25 21:20] LABS: ALK PHOS 93 U/L (46-116); ALT (SGPT) 100 U/L (16-63); ANION GAP 14 (6-14); AST (SGOT) 72 U/L (15-37); BUN/CREATININE RATIO 31 (6-20); CARBON DIOXIDE 23 mmol/L (21-32); CHLORIDE 103 mmol/L (98-107); CREATININE 1.5 mg/dL (0.7-1.3); GFR 44.6; MAGNESIUM 2.1 mg/dL (1.8-2.4); POTASSIUM 3.2 mmol/L (3.5-5.1); SODIUM 140 mmol/L (136-145); TOTAL BILIRUBIN 0.9 mg/dL (0.2-1.0)
[2021-04-25 22:39] VITALS: BP 147/64
--- NOTE | 2021-04-28 22:06 | EKG ---
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
== END 2021-04-25 22:39 | disposition short-term general hospital (02) ==
LOC: ER 14:02
DX: S12.400A Unspecified displaced fracture of fifth cervical vertebra, initial encounter for closed fracture (principal); S12.500A Unspecified displaced fracture of sixth cervical vertebra, initial encounter for closed fracture; S12.600A Unspecified displaced fracture of seventh cervical vertebra, initial encounter for closed fracture; R55 Syncope and collapse; R41.82 Altered mental status, unspecified; E87.2 Acidosis; E87.6 Hypokalemia; N30.01 Acute cystitis with hematuria; I10 Essential (primary) hypertension; F10.20 Alcohol dependence, uncomplicated; Z88.0 Allergy status to penicillin; Z88.1 Allergy status to other antibiotic agents; Y90.9 Presence of alcohol in blood, level not specified; X58.XXXA Exposure to other specified factors, initial encounter; Y93.89 Activity, other specified; Y92.89 Other specified places as the place of occurrence of the external cause; Y99.8 Other external cause status
CPT/HCPCS: 36415; 36556; 51702; 70450; 70496; 70498; 71045; 72125; 80047; 80053; 81001; 82553; 83605; 83735; 84484; 85025; 87040; 87086; 87205; 93005; 96365; 96366; 96368; 99291; J1956; J3370; J3480; J3490; J7030; J7040; Q9967

== ENCOUNTER 2021-04-28 10:28 | Emergency (ER) | payer MEDICARE, BC ==
[2021-04-28 10:52] LABS: BASO # 0.2 x10^3/uL (0.0-0.2); BASO % 1 % (0-3); EOS # 0.2 x10^3/uL (0.0-0.7); EOS % 1 % (0-3); HEMATOCRIT 39.7 % (39.0-53.0); HEMOGLOBIN 12.3 g/dL (13.0-17.5); LYMPH # 4.2 x10^3/uL (1.0-4.8); LYMPH % 22 % (24-48); MEAN CORPUSCULAR HEMOGLOBIN 33 pg (25-35); MEAN CORPUSCULAR HGB CONC 31 g/dL (31-37); MEAN CORPUSCULAR VOLUME 107 fL (79-100); MONO % 11 % (0-9); NEUT # 12.5 x10^3uL (1.8-7.7); NEUT % 66 % (31-73); PLATELET COUNT 229 x10^3/uL (140-400); RED BLOOD COUNT 3.73 x10^6/uL (4.30-5.70); RED CELL DISTRIBUTION WIDTH 14.9 % (11.5-14.5)
--- NOTE | 2021-04-28 10:53 | PHYS DOC ---
Past History Past Medical History: Hypertension, Other (Recent cervical spine fracture) Additional Past Medical Histor: psorisis, gout, colon cancer Past Surgical History: Other Additional Past Surgical Histo: hernia repair, Alcohol Use: Heavy Adult General HPI HPI Patient is a 85-year-old male presenting via EMS for [facility]. Patient was r ecently seen at our facility approximately 72 hours ago, was here and diagnosed with acute unstable C6 and C7 neck fractures with anterior subluxation jumped facets and decision was made to transfer to [facility] for higher acuity of care. It is unknown what happened at their facility but patient was subsequently discharged and sent to local longterm. Per EMS report, patient's last known normal was 0930 hrs. Patient was found approximately 30 minutes later in same chair that he was left in pulseless and unresponsive and so CPR was started. EMS was called and when they arrived to scene, patient was still unresponsive and appeared to be in asystole arrest and so, patient was emergently transported to our facility for evaluation. In route, Tye CPR machine was applied, LMA placed, left tibia IO inserted and x1 epi administered Review of Systems Review of Systems ROS unobtainable due to patient status Allergies Allergies Allergies Coded Allergies Type Severity Reaction Last Updated Verified Penicillins Allergy Unknown 04/03/21 Yes tetracycline Adverse Reaction Intermediate Nausea and Vomiting 04/04/21 Yes Physical Exam Physical Exam Constitutional: Age-appropriate male in c-collar on arrival unresponsive with GCS 3 HEENT: Head: Normocephalic and atraumatic. External ears unremarkable, negative vazquez sign Conjunctivae normal. Pupils are equal, round, and both not reactive to light, no ocular reflex present Oropharynx is clear and dry with LMA present. No hematomas or lacerations or abrasions to face or scalp OP clear, no blood, no malocclusion, dentition intact Nares clear, no nasal septal hematoma Midface stable Neck: C-spine precautions and collar in place prior to arrival with recent history of unstable cervical fracture seen at [facility] reported. No obvious signs of surgical intervention present Cardiovascular: Asystole on arrival Pulmonary/Chest: Bilateral breath sounds present when bagged, rhonchi present in bilateral lungs Abdominal: Soft. Bowel sounds are normal. Pt exhibits no distension. There is no tenderness. Musculoskeletal: No meaningful movement of all/any extremities There is visual abnormality and ecchymosis to right knee that was present prior to arrival Chest wall stable with Tye CPR machine in place Pelvis stable No vertebral abnormalities visually and spine without stepoffs Neurological: GCS 3 Eyes unreactive to light, no ocular or gag reflex, no sedation required since ER arrival with LMA in place Not moving any extremities purposefully Alert and oriented x 3 Unable to assess sensation Skin: Skin is warm and dry. No abrasions, no lacerations Psychiatric: Unable to fully assess Current Patient Data Vital Signs Vital Signs Date Time Temp Pulse Resp B/P (MAP) Pulse Ox O2 Delivery O2 Flow Rate FiO2 04/28/21 10:56 105 52/34 (40) 100 Ventilator 04/28/21 11:01 16 Vital Signs Date Time Temp Pulse Resp B/P (MAP) Pulse Ox O2 Delivery O2 Flow Rate FiO2 04/28/21 12:24 74 21 82/33 (49) 99 Ventilator Lab Results Laboratory Tests Test 04/28/21 10:33 04/28/21 10:42 04/28/21 11:59 04/28/21 12:04 White Blood Count 19.0 x10^3/uL Red Blood Count 3.73 x10^6/uL Hemoglobin 12.3 g/dL Hematocrit 39.7 % Mean Corpuscular Volume 107 fL Mean Corpuscular Hemoglobin 33 pg Mean Corpuscular Hemoglobin Concent 31 g/dL Red Cell Distribution Width 14.9 % Platelet Count 229 x10^3/uL Neutrophils (%) (Auto) 66 % Lymphocytes (%) (Auto) 22 % Monocytes (%) (Auto) 11 % Eosinophils (%) (Auto) 1 % Basophils (%) (Auto) 1 % Neutrophils # (Auto) 12.5 x10^3uL Lymphocytes # (Auto) 4.2 x10^3/uL Monocytes # (Auto) 2.0 x10^3/uL Eosinophils # (Auto) 0.2 x10^3/uL Basophils # (Auto) 0.2 x10^3/uL Segmented Neutrophils % 44 % Band Neutrophils % 8 % Lymphocytes % 31 % Monocytes % 5 % Eosinophils % 1 % Metamyelocytes % 11 % Nucleated Red Blood Cells 1 Platelet Estimate Adequate Bedside Venous pH 6.92 Bedside Venous pCO2 64 mmHg Bedside Venous pO2 53 mmHg Venous Blood HCO3 13 mmol/L POC Venous O2 Saturation (Moe) 63 % Bedside FiO2 100 100.0 Sodium Level 153 mmol/L Potassium Level 5.3 mmol/L Chloride Level 116 mmol/L Carbon Dioxide Level 17 mmol/L Anion Gap 20 Blood Urea Nitrogen 35 mg/dL Creatinine 1.6 mg/dL Estimated GFR (Cockcroft-Gault) 41.4 BUN/Creatinine Ratio 22 Glucose Level 195 mg/dL Lactic Acid Level 13.4 mmol/L Calcium Level 9.3 mg/dL Total Bilirubin 0.5 mg/dL Aspartate Amino Transf (AST/SGOT) 114 U/L Alanine Aminotransferase (ALT/SGPT) 104 U/L Alkaline Phosphatase 109 U/L Troponin I Quantitative 0.080 ng/mL IQ-[id number]-Q-Type Natriuretic Peptide 5116 pg/mL Total Protein 5.2 g/dL Albumin 2.0 g/dL Albumin/Globulin Ratio 0.6 Urine Collection Type U cath Urine Color Yellow Urine Clarity Hazy Urine pH 5.5 Urine Specific Hinton 1.015 Urine Protein 30 mg/dl Urine Glucose (UA) Neg mg/dL Urine Ketones (Stick) 15 mg/dL Urine Blood Small Urine Nitrite Neg Urine Bilirubin Small Urine Urobilinogen Dipstick 1.0 mg/dL Urine Leukocyte Esterase Neg Urine RBC 1-2 /HPF Urine WBC Rare /HPF Urine Bacteria Few /HPF Urine Granular Casts Many /HPF Blood Gas pH 7.13 Blood Gas PCO2 31 mmHg Blood Gas PO2 421 mmHg Blood Gas HCO3 11 mmol/L Arterial Bld O2 Saturation (Calc) 100 % FiO2 100 % Bedside Arterial pH 7.13 Arterial Blood pH (Temp corrected) 7.13 Bedside Arterial pCO2 32 mmHg Arterial Blood pCO2 (Temp correct) 31 mmHg Bedside Arterial pO2 421 mmHg Arterial Blood pO2 (Temp corrected) 421 mmHg Arterial Blood HCO3 10 mmol/L Bedside Arterial Blood O2 Sat 100 % Current Medications Medications (Trade) Dose Ordered Sig/Adi Route PRN Reason Start Time Stop Time Status Last Admin Dose Admin Iohexol (Omnipaque 300 Mg/ml) 75 ml 1X ONCE IV 04/28/21 11:00 04/28/21 11:01 DC 04/28/21 11:29 Epinephrine HCl (EPINEPHrine SYRINGE) 1 mg STK-MED ONCE .ROUTE 04/28/21 11:01 04/28/21 11:02 DC Sodium Chloride 250 ml @ As Directed STK-MED ONCE .ROUTE 04/28/21 11:02 04/28/21 11:02 DC Ceftriaxone Sodium 2 gm/ Sodium Chloride 100 ml @ 200 mls/hr 1X ONCE IV 04/28/21 12:30 04/28/21 12:59 Metronidazole 100 ml @ 100 mls/hr 1X ONCE IV 04/28/21 12:30 04/28/21 13:29 Ceftriaxone Sodium (Rocephin) 2 gm STK-MED ONCE IV 04/28/21 12:52 04/28/21 12:52 DC Sodium Chloride 100 ml @ As Directed STK-MED ONCE .ROUTE 04/28/21 12:52 04/28/21 12:52 DC EKG EKG EKG ordered and interpreted by myself at 1038 hrs. as supraventricular tachycardia at 154 bpm, prolonged QTC at 468 otherwise unremarkable intervals, left axis deviation, no STEMI EKG ordered and interpreted by myself 1229 hrs. as sinus rhythm at 75 bpm, unremarkable intervals, left axis deviation, no STEMI. This EKG was reviewed viewed and compared to prior obtained at last ER visit within the past 7 days and grossly unchanged Radiology/Procedures Radiology/Procedures XR CHEST 1V CLINICAL INDICATIONS: Intubation COMPARISON: April 25, 2021. 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 ET tube is in place and the tip is located 2 cm above the level of the sarahy. There is mild elevation of the right hemidiaphragm which is unchanged. Mild left lung base infiltrate or atelectasis is again evident. No pleural effusion or pneumothorax is present. Moderate gaseous distention of the stomach. The heart size and mediastinum and pulmonary vasculature and both evonne are otherwise unremarkable. IMPRESSION: ET tube tip is located 2 cm above the level of the sarahy. Stable left lung base infiltrate or atelectasis. Electronically signed by: Franc Arora MD (04/28/2021 11:12 AM) [id number] ////////////////////////////////// EXAM: CT Head without IV contrast CLINICAL HISTORY: unwitnessed cardiac arrest COMPARISON: None. TECHNIQUE: Routine CT of the head without contrast. PQRS compliance statement - One or more of the following individualized dose reduction techniques were utilized for this study: 1. Automated exposure control 2. Adjustment of the mA and/or kV according to patient size 3. Use of iterative reconstruction technique FINDINGS: There is no evidence of hemorrhage, mass or extra-axial fluid collection. Peterson-white differentiation is maintained with no evidence of edema. Subcortical, periventricular as well as deep white matter foci of hypoattenuation likely changes of chronic small vessel disease. There is no mass effect or shift of the intracranial structures. The ventricles and cerebral sulci are prominent for the patients stated age consistent with generalized cerebral volume loss. The cerebellum and brainstem are unremarkable. The calvarium demonstrates no evidence of fracture or focal lesion. There is normal aeration of the visualized paranasal sinuses and mastoid air cells. The visualized portions of the orbits are normal. Atherosclerotic calcifications of the intracranial internal carotid and vertebral arteries is seen. IMPRESSION: 1. No evidence for acute intracranial process. 2. White matter changes, likely of chronic small vessel disease. Electronically signed by: Ronald Stanford MD (04/28/2021 11:42 AM) [id number] //////////////////////// EXAMINATION: CT chest, abdomen and pelvis with IV contrast. INDICATION:85 years, Male, cardiac arrest. TECHNIQUE: Axial CT images of the chest, abdomen and pelvis were obtained. Coronal and sagittal reformatted performed. COMPARISON: CT dated 04/25/2021. Exposure: One or more of the following individualized dose reduction techniques were utilized for this examination: 1. Automated exposure control 2. Adjustment of the mA and/or kV according to patient size 3. Use of iterative reconstruction technique. FINDINGS: CHEST: Heterogeneous attenuation of the thyroid gland. Unremarkable esophagus. No lymphadenopathy in the chest by size criteria. Nonspecific nonenlarged mediastinal and right paratracheal lymph nodes, the largest measures 8 mm in short axis. Borderline cardiomegaly with enlarged left atrium. Mild coronary artery atherosclerotic calcifications. No pericardial effusion. Normal caliber thoracic and pulmonary arteries caliber. However, moderate sclerotic disease identified. Central airways are patent. Endotracheal tube tip terminates above the sarahy. Right worst than left posterior basilar consolidative opacities with endobronchial debris. Scattered calcified granulomas bilaterally. Bronchial wall thickening with endobronchial debris seen in the right upper lobe. Tree-in-bud nodularities in the right upper lobe noted as well. No pleural effusion or pneumothorax. Few scattered sub-5 mm pulmonary nodules bilaterally, for example left upper lobe pulmonary nodules measures 2 mm. series 5 image 34. ABDOMEN/PELVIS: Elevation of the right hemidiaphragm. Normal morphology and size of the liver with homogeneous enhancement. No suspicious focal hepatic lesion. Contracted gallbladder which limits evaluation. No biliary ductal dilation. Periportal edema. Unremarkable spleen. Mildly atrophic pancreas with fat infiltration. No adrenal nodule. No hydronephrosis or nephrolithiasis in either kidney. Innumerable subcentimeter hypodensities in both renal cortices, too small to characterize. Vascular calcifications in the right renal hilum. Nonspecific bi lateral perinephric fat stranding. Postsurgical changes of anorectal anastomosis. Mild diverticulosis without diverticulitis. No bowel obstruction or wall thickening. Normal appendix. Gaseous distention of the stomach. Moderate aortoiliac atherosclerotic calcifications, without significant narrowing or dilation. Mesenteric arteries and portal vein are patent. No pneumoperitoneum or ascites. No abdominopelvic lymphadenopathy by size criteria. Underdistended urinary bladder with Foleys catheter in place and nondependent gas. Minimal perivesical ankle fat stranding, nonspecific. Unremarkable prostate. MUSCULOSKELETAL: Similar unstable C6-7 three column fracture with anterior subluxation and jumped facet, associated with diffuse prevertebral hematoma extends to the T1-T2 level. This hematoma causes mass effect upon the esophagus. Asymmetric area thickened right obturator internus muscle with the hypoattenuating foci. Severe multilevel degenerative changes throughout the thoracolumbar spine. Diffuse osteopenia. Bilateral sacroiliac joints anchylosis. IMPRESSION: 1. Right worst than left, posterior basilar consolidations with endobronchial debris and tree-in-bud nodularity in the right upper lobe likely reflecting aspirations and/or multifocal pneumonia. 2. No acute abnormality in the abdomen or pelvis. 3. Similar unstable C6-7 three column fracture with anterior subluxation, associated with diffuse prevertebral hematoma extends to the T1-T2 level. 4. Asymmetric thickened right obturator internus muscle with hypoattenuating foci, nonspecific and may relate to chronic injury/hematoma. 5. Other chronic/incidental findings, as described above. Electronically signed by: Patricio Lebron MD (04/28/2021 12:14 PM) [facility] ////////////////// INDICATION: Reason: s/p ng tube. / Spl. Instructions: 2 ATTEMPTS WERE SENT / History: COMPARISON: Earlier same day FINDINGS: 2 frontal view of chest obtained. The initial image demonstrates endotracheal tube at the mid thoracic trachea and enteric tube at the expected location of the distal esophagus. Calcific atherosclerosis. Patchy opacity at the right greater than left lung base. A second image was sent which demonstrates advancement of the endotracheal tube with the tip now located near the expected location of the gastroesophageal junction. IMPRESSION: * Enteric tube is seen with tip near the expected location of gastroesophageal junction. * Patchy opacities at lung bases could be from atelectasis or infiltrate. Electronically signed by: Bernabe Vaz MD (04/28/2021 1:25 PM) [id number] Heart Score C/O Chest Pain: N/A HEART Score for Chest Pain: HEART Score for Chest Pain Response (Comments) Value History Highly Suspicious 2 ECG Nonspecific Repolarizatio 1 Age > 65 2 Risk Factors >3 Risk Factors or Hx CAD 2 Troponin >1-<3x Normal Limit 1 Total 8 Risk Factors: Risk Factors: DM, Current or recent (<one month) smoker, HTN, HLP, family history of CAD, obesity. Risk Scores: Risk Factors: DM, Current or recent (<one month) smoker, HTN, HLP, family history of CAD, obesity. Course & Med Decision Making Course & Med Decision Making Patient presented via EMS by [facility]. Patient report obtained and patient transferred to ER trauma bed Additional left AC IV obtained. Pads placed and pulse check obtained with asystole present on immediate evaluation and so CPR ensued Please see dedicated code sheet for details of resuscitation. Epi was only medication given, no defibrillation required, ROSC was obtained. Approximate time of entire cardiac arrest approximately 45 minutes with unknown preceding downtime due to unwitnessed arrest Patient intubated after arrest as noted below. 2 L IV fluid bolus administered. Epinephrine drip started. FC placed. There is concern for aspiration and so, given history of penicillin allergy Flagyl and Rocephin administered It is unknown what occurred at [facility] as outside records are unobtainable, no obvious surgical intervention present based on physical examination. DPMICHAEL who is patient's first cousin finally arrived and case discussed at length, I reiterated poor prognosis and little signs of neurologic function present on a rrival. I disclosed grim outcome for any meaningful life after a potential recovery LIUDMILA decided to make patient DNR status at this time. He agreed to continuing to treat at present until he could converse with other distant family members about case, he acknowledges severity/critical condition of patient and potential for palliative/comfort care measures I contacted hospitalist group at [facility] and reviewed case. No indication for hypothermia protocol at present. Patient was accepted under the care of Dr. Juarez. Decision to defer central line placement given patent IO and likely plans for comfort care measures I updated patient's DPOA on proposed plan of care that included continued medical management and hospital transfer, he was amenable. All questions and concerns addressed prior to ER transfer to [facility] for ICU admission Critical Care Time This patient required critical care. Due to the fact that the patient required a significant amount of one on one physician - patient contact time, ordering and review of studies, arranging urgent treatment with development of a management plan, evaluation of patients response to treatment with frequent reassessments, and discussions with other providers this patient required 60 minutes of critical care time. Critical care time was indicated due to the inherent instability and/or potential for instability in this patient. The critical care time that is allocated to this patient is above and beyond any time spent on any other billable procedures performed on this patient. Dragon Disclaimer Dragon Disclaimer This electronic medical record was generated, in whole or in part, using a voice recognition dictation system. Intubation Intubation : Intubation Method: orotracheal Tube Size (cm): 7.5 Breath Sounds after Intubation: equal Intubation Complications: no complications Post Intubation Xray: Yes Progress After ROSC was obtained, decision was made to intubate patient from LMA to a definitive endotracheal tube. Given cervical spine issues, a glidescope 3 blade and 7.5 ETT was utilized after copious suction and extraction of yellow-tinged mucus from posterior oropharynx. Cords were visualized and tube was seen passi ng through the cords without any issues. Intubation was successful after first attempt, this procedure took less than 30 seconds to complete, no sedation was required due to patient condition. Positive CO2 change, equal breath sounds and chest rise bilaterally when bagged, postprocedural chest x-ray obtained and confirmed adequate position of ETT that was 22 at the lips. All of this was performed with C-spine precautions given recent unstable cervical spine fracture Departure Departure: Impression: Primary Impression: Cardiac arrest Additional Impressions: Pneumonia Sepsis with acute respiratory failure and septic shock Closed cervical spine fracture Elevated troponin Disposition: 02 [facility] Admitting Physician: Other (dr juarez) Condition: CRITICAL Referrals: CLAUDIA MITCHELL MD (PCP) Problem Qualifiers GARY ARREDONDO DO Apr 28, 2021 10:53
[2021-04-28] MEDS ORDERED: IOHEXOL 300 MG/ML 75 ML VIAL. IV ONE (11:00)
[2021-04-28] MEDS ORDERED: EPINEPHrine SYRINGE 1 MG/10 ML SYRINGE ONE ×2 (11:01→12:00)
[2021-04-28] MEDS ORDERED: IV NORMAL SALINE 250ML 250 ML ONE (11:02)
[2021-04-28 11:12] LABS: ALBUMIN/GLOBULIN RATIO 0.6 (1.0-1.7); CALCIUM 9.3 mg/dL (8.5-10.1); CREATININE 1.6 mg/dL (0.7-1.3); GFR 41.4; POTASSIUM 5.3 mmol/L (3.5-5.1); TOTAL BILIRUBIN 0.5 mg/dL (0.2-1.0); TOTAL PROTEIN 5.2 g/dL (6.4-8.2)
--- NOTE | 2021-04-28 11:14 | RAD ---
XR CHEST 1V CLINICAL INDICATIONS: Intubation COMPARISON: April 25, 2021. 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 ET tube is in place and the tip is located 2 cm above th e level of the sarahy. There is mild elevation of the right hemidiaphragm which is unchanged. Mild le ft lung base infiltrate or atelectasis is again evident. No pleural effusion or pneumothorax is prese nt. Moderate gaseous distention of the stomach. The heart size and mediastinum and pulmonary vasculat ure and both evonne are otherwise unremarkable. IMPRESSION: ET tube tip is located 2 cm above the level of the sarahy. Stable left lung base infiltra te or atelectasis. Electronically signed by: Franc Arora MD (04/28/2021 11:12 AM) [id number]
[2021-04-28 11:20] LABS: BILIRUBIN,URINE SMALL (NEG); CLARITY,URINE HAZY; COLOR,URINE YELLOW; GLUCOSE,URINE NEG (NEG); NITRITE,URINE NEG (NEG)
[2021-04-28 11:21] LABS: BACTERIA,URINE FEW /HPF (0-FEW); WBC,URINE RARE /HPF (0-4)
[2021-04-28 11:22] LABS: GRANULAR CASTS,URINE MANY /HPF
--- NOTE | 2021-04-28 11:44 | RAD ---
EXAM: CT Head without IV contrast CLINICAL HISTORY: unwitnessed cardiac arrest COMPARISON: None. TECHNIQUE: Routine CT of the head without contrast. PQRS compliance statement - One or more of the following individualized dose reduction techniques wer e utilized for this study: 1. Automated exposure control 2. Adjustment of the mA and/or kV according to patient size 3. Use of iterative reconstruction technique FINDINGS: There is no evidence of hemorrhage, mass or extra-axial fluid collection. Peterson-white differentiation is maintained with no evidence of edema. Subcortical, periventricular as w ell as deep white matter foci of hypoattenuation likely changes of chronic small vessel disease. There is no mass effect or shift of the intracranial structures. The ventricles and cerebral sulci are prominent for the patients stated age consistent with generaliz ed cerebral volume loss. The cerebellum and brainstem are unremarkable. The calvarium demonstrates no evidence of fracture or focal lesion. There is normal aeration of the visualized paranasal sinuses and mastoid air cells. The visualized portions of the orbits are normal. Atherosclerotic calcifications of the intracranial internal carotid and vertebral arteries is seen. IMPRESSION: 1. No evidence for acute intracranial process. 2. White matter changes, likely of chronic small vessel disease. Electronically signed by: Ronald Stanford MD (04/28/2021 11:42 AM) [id number]
[2021-04-28 11:49] LABS: % BANDS 8 % (0-9); % EOS 1 % (0-5); % LYMPHS 31 % (24-48); % METAS 11 % (0-0); % MONOS 5 % (0-10); % SEGS 44 % (35-66); NUCLEATED RBC 1; PLT ESTIMATE ADEQUATE (ADEQUATE)
--- NOTE | 2021-04-28 12:17 | RAD ---
EXAMINATION: CT chest, abdomen and pelvis with IV contrast. INDICATION:85 years, Male, cardiac arrest. TECHNIQUE: Axial CT images of the chest, abdomen and pelvis were obtained. Coronal and sagittal refor matted performed. COMPARISON: CT dated 04/25/2021. Exposure: One or more of the following individualized dose reduction techniques were utilized for thi s examination: 1. Automated exposure control 2. Adjustment of the mA and/or kV according to patient size 3. Use of iterative reconstruction technique. FINDINGS: CHEST: Heterogeneous attenuation of the thyroid gland. Unremarkable esophagus. No lymphadenopathy in the richar st by size criteria. Nonspecific nonenlarged mediastinal and right paratracheal lymph nodes, the larg est measures 8 mm in short axis. Borderline cardiomegaly with enlarged left atrium. Mild coronary art merritt atherosclerotic calcifications. No pericardial effusion. Normal caliber thoracic and pulmonary ar teries caliber. However, moderate sclerotic disease identified. Central airways are patent. Endotracheal tube tip terminates above the sarahy. Right worst than left posterior basilar consolidative opacities with endobronchial debris. Scattered calcified granulomas b ilaterally. Bronchial wall thickening with endobronchial debris seen in the right upper lobe. Tree-in -bud nodularities in the right upper lobe noted as well. No pleural effusion or pneumothorax. Few sca ttered sub-5 mm pulmonary nodules bilaterally, for example left upper lobe pulmonary nodules measures 2 mm. series 5 image 34. ABDOMEN/PELVIS: Elevation of the right hemidiaphragm. Normal morphology and size of the liver with homogeneous enhanc ement. No suspicious focal hepatic lesion. Contracted gallbladder which limits evaluation. No biliary ductal dilation. Periportal edema. Unremarkable spleen. Mildly atrophic pancreas with fat infiltrati on. No adrenal nodule. No hydronephrosis or nephrolithiasis in either kidney. Innumerable subcentimet er hypodensities in both renal cortices, too small to characterize. Vascular calcifications in the ri ght renal hilum. Nonspecific bilateral perinephric fat stranding. Postsurgical changes of anorectal anastomosis. Mild diverticulosis without diverticulitis. No bowel o bstruction or wall thickening. Normal appendix. Gaseous distention of the stomach. Moderate aortoilia c atherosclerotic calcifications, without significant narrowing or dilation. Mesenteric arteries and portal vein are patent. No pneumoperitoneum or ascites. No abdominopelvic lymphadenopathy by size cri teria. Underdistended urinary bladder with Foleys catheter in place and nondependent gas. Minimal per ivesical ankle fat stranding, nonspecific. Unremarkable prostate. MUSCULOSKELETAL: Similar unstable C6-7 three column fracture with anterior subluxation and jumped facet, associated wi th diffuse prevertebral hematoma extends to the T1-T2 level. This hematoma causes mass effect upon th e esophagus. Asymmetric area thickened right obturator internus muscle with the hypoattenuating foci. Severe multilevel degenerative changes throughout the thoracolumbar spine. Diffuse osteopenia. Bilat eral sacroiliac joints anchylosis. IMPRESSION: 1. Right worst than left, posterior basilar consolidations with endobronchial debris and tree-in-bud nodularity in the right upper lobe likely reflecting aspirations and/or multifocal pneumonia. 2. No acute abnormality in the abdomen or pelvis. 3. Similar unstable C6-7 three column fracture with anterior subluxation, associated with diffuse pre vertebral hematoma extends to the T1-T2 level. 4. Asymmetric thickened right obturator internus muscle with hypoattenuating foci, nonspecific and ma y relate to chronic injury/hematoma. 5. Other chronic/incidental findings, as described above. Electronically signed by: Patricio Lebron MD (04/28/2021 12:14 PM) [facility]
[2021-04-28 12:19] LABS: BGAS PH 7.13 (7.35-7.46)
[2021-04-28] MEDS ORDERED: IV NORMAL SALINE 100ML 100 ML ONE (12:52)
--- NOTE | 2021-04-28 13:27 | RAD ---
INDICATION: Reason: s/p ng tube. / Spl. Instructions: 2 ATTEMPTS WERE SENT / History: COMPARISON: Earlier same day FINDINGS: 2 frontal view of chest obtained. The initial image demonstrates endotracheal tube at the mid thoracic trachea and enteric tube at the expected location of the distal esophagus. Calcific atherosclerosis. Patchy opacity at the right greater than left lung base. A second image was sent which demonstrates advancement of the endotracheal tube with the tip now loca greg near the expected location of the gastroesophageal junction. IMPRESSION: * Enteric tube is seen with tip near the expected location of gastroesophageal junction. * Patchy opacities at lung bases could be from atelectasis or infiltrate. Electronically signed by: Bernabe Vaz MD (04/28/2021 1:25 PM) [id number]
[2021-04-28 13:33] VITALS: BP 104/46
[2021-04-28] MEDS ORDERED: IV NORMAL SALINE 1,000ML 2,000 ML IV ONE (14:15)
[2021-04-28] MEDS ORDERED: EPINEPHrine 5 MG in IV NORMAL SALINE 250ML 250 ML IV PRN (14:15)
--- NOTE | 2021-04-28 22:13 | EKG ---
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: : 1935 Requested By: GARY ARREDONDO Order Number: [id number] Reading MD: Measurements Intervals [place] Rate: 154 P: 152 [place]: 78 QRS: -59 QRSD: 80 T: 36 QT: 290 QTc: 468 Interpretive Statements SUPRAVENTRICULAR TACHYCARDIA ABNORMAL LEFT AXIS DEVIATION R-S TRANSITION ZONE IN V LEADS DISPLACED TO THE RIGHT LEFT ANTERIOR FASCICULAR BLOCK T ABNORMALITY IN INFERIOR LEADS ABNORMAL ECG RI6.02 Compared to ECG 04/28/2021 10:15:41 Left-axis deviation now present Left anterior fascicular block now present T-wave abnormality now present Sinus rhythm no longer present Prolonged QT interval no longer present
--- NOTE | 2021-04-28 22:14 | EKG ---
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
== END 2021-04-28 13:46 | disposition short-term general hospital (02) ==
LOC: ER 10:39
DX: I46.9 Cardiac arrest, cause unspecified (principal); J18.9 Pneumonia, unspecified organism; S12.9XXA Fracture of neck, unspecified, initial encounter; R65.20 Severe sepsis without septic shock; R77.8 Other specified abnormalities of plasma proteins; I10 Essential (primary) hypertension; Z88.0 Allergy status to penicillin; X58.XXXA Exposure to other specified factors, initial encounter; Y93.89 Activity, other specified; Y92.89 Other specified places as the place of occurrence of the external cause; Y99.8 Other external cause status
CPT/HCPCS: 31500; 36415; 36600; 70450; 71045; 71260; 74177; 80053; 81001; 82803; 83605; 83880; 84484; 85007; 85025; 87040; 92950; 93005; 96365; 99291; J0171; J0696; J3490; J7030; J7050; Q9967; 94002